=== PATIENT | male | born 1970 | race Caucasian/White ===

== ENCOUNTER 2019-01-10 00:25 | Emergency (ER) | payer OTHER ==
[~2019-01-10] VITALS: Ht 180.3 cm; Wt 105.5 kg
[~2019-01-10 00:25] MED LIST: ALBU8HFA IH; ASPI81TA40 PO; ATOR10TA84 PO; AZIT250T9 PO; BENZ1TAB10 PO; CARV12 PO; CLOZ100T29 PO; DIPH50 PO; DIVA500T52 PO; FLUP10 PO; FURO40 PO; KDUR10 PO; LISI-661 PO; LORA1TAB3 PO; PANT40TA25 PO; PRED5 PO; QUET300T2 PO
[2019-01-10] MEDS ORDERED: TRAZ-220 PO (00:48)
[2019-01-10] MEDS ORDERED: HALO10 PO (00:48)
[2019-01-10] MEDS ORDERED: IPRATROPIUM BROMIDE 0.5 MG/2.5 ML NEB SOLUTION NEB ONE (01:15)
[2019-01-10] MEDS ORDERED: ALBUTEROL SULFATE 2.5 MG/0.5 ML NEB SOLUTION NEB ONE (01:15)
[2019-01-10 02:09] VITALS: BP 136/88
== END 2019-01-10 02:30 | disposition home or self-care (01) ==
LOC: EMS 00:28
DX: J44.9 Chronic obstructive pulmonary disease, unspecified (principal); J06.9 Acute upper respiratory infection, unspecified; I10 Essential (primary) hypertension; F20.9 Schizophrenia, unspecified; F17.210 Nicotine dependence, cigarettes, uncomplicated; Z79.82 Long term (current) use of aspirin; Z79.899 Other long term (current) drug therapy; Z88.0 Allergy status to penicillin
CPT/HCPCS: 94640

== ENCOUNTER 2019-07-19 15:51 | Emergency (ER) | payer OTHER ==
[~2019-07-19] VITALS: Ht 180.3 cm; Wt 102.7 kg
[~2019-07-19 15:51] MED LIST changes: +HALO10 PO; +TRAZ-257 PO
[2019-07-19] MEDS ORDERED: BACITRACIN 0.9 GM PACKET OINTMENT TP ONE (17:30)
[2019-07-19] MEDS ORDERED: IBUPROFEN 400 MG TABLET PO ONE (17:30)
[2019-07-19] MEDS ORDERED: AMOX TR/POT CLAV 875 MG/125 MG TABLET PO ONE (17:30)
[2019-07-19] MEDS ORDERED: LIDOCAINE/PF 1% 5 ML VIAL INJ ONE (17:30)
[2019-07-19] MEDS ORDERED: LORA-1000 PO (17:35)
[2019-07-19] MEDS ORDERED: SLOWK8 PO (17:35)
[2019-07-19] MEDS ORDERED: CLOZ100T35 PO (17:35)
[2019-07-19 19:19] VITALS: BP 126/77
== END 2019-07-19 19:25 | disposition home or self-care (01) ==
LOC: EMS 15:53
DX: S61.257A Open bite of left little finger without damage to nail, initial encounter (principal); E78.00 Pure hypercholesterolemia, unspecified; I10 Essential (primary) hypertension; J44.9 Chronic obstructive pulmonary disease, unspecified; F20.9 Schizophrenia, unspecified; F17.210 Nicotine dependence, cigarettes, uncomplicated; Z79.899 Other long term (current) drug therapy; Z88.0 Allergy status to penicillin; Z79.82 Long term (current) use of aspirin; W54.0XXA Bitten by dog, initial encounter; Y93.89 Activity, other specified; Y92.89 Other specified places as the place of occurrence of the external cause; Y99.8 Other external cause status
CPT/HCPCS: 12001; 99283; J2001

== ENCOUNTER 2019-07-26 13:04 | Emergency (ER) | payer OTHER ==
[~2019-07-26] VITALS: Ht 180.3 cm; Wt 81.8 kg
[~2019-07-26 13:04] MED LIST changes: -AZIT250T9 PO; -CLOZ100T29 PO; +CLOZ100T35 PO; -KDUR10 PO; +LORA-1000 PO; -LORA1TAB3 PO; -PRED5 PO; +SLOWK8 PO
[2019-07-26 14:50] VITALS: BP 96/58
== END 2019-07-26 15:11 | disposition home or self-care (01) ==
LOC: EMS 13:07
DX: S61.217D Laceration without foreign body of left little finger without damage to nail, subsequent encounter (principal); E78.00 Pure hypercholesterolemia, unspecified; I10 Essential (primary) hypertension; J44.9 Chronic obstructive pulmonary disease, unspecified; F20.9 Schizophrenia, unspecified; F17.210 Nicotine dependence, cigarettes, uncomplicated; Z88.8 Allergy status to other drugs, medicaments and biological substances; Z48.02 Encounter for removal of sutures; Z79.899 Other long term (current) drug therapy; Z88.0 Allergy status to penicillin; W54.0XXD Bitten by dog, subsequent encounter